=== PATIENT | female | born 1950 | race Caucasian/White ===

== ENCOUNTER 2023-02-27 11:34 | Outpatient (AMB) | payer MEDICARE, MEDICAID, SELFPAY ==
--- NOTE | 2023-02-27 11:36 | AM.OFFWIN_ITS ---
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 Patient Tobacco Use Status: Never used Tobacco Allergies celecoxib [From Celebrex] Adverse Reaction (Intermediate, Verified 02/27/23 11:38) Rash naproxen Adverse Reaction (Intermediate, Verified 02/27/23 11:38) Rash Do you need a note to return to daycare/school/sports/work: No HPI HPI Comments History of Present Illness Details 73-year-old female presents for staple removal. Patient had hip replacement at [facility] on 02/13/2023. Patient is in process of changing primary care physicians to [facility]. [facility] Social History Patient Tobacco Use Status: Never used Tobacco Review of Systems Const Details: Constitutional: No Fever, No Chills Cardiovascular: No Chest Pain, No SOB Respiratory: No Cough, No Dyspnea Gastrointestinal: No Nausea, No Vomiting, No Diarrhea, No abdominal Pain Genitourinary: No Dysuria, No Hematuria Musculoskeletal: No joint pain, No Myalgias, No Joint Swelling Skin: Well-healed, well-approximated 40 cm surgical incisions consistent with right hip replacement. No Skin lacerations, positive rash to hands and arms Neuro: No Weakness, No Numbness, No Paresthesias, No Loss of Consciousness, No Dizziness, No Headache All systems reviewed & are unremarkable except as noted in HPI and below Physical Exam Vital Signs: Last Vital Signs Temp 96.5 F L 02/27/23 11:39 Pulse 102 H 02/27/23 11:39 BP 104/62 02/27/23 11:39 Pulse Ox 98 02/27/23 11:39 Oxygen Delivery Method Room Air 02/27/23 11:39 Appearance: Alert. Oriented X3. No acute distress. Eyes: Pupils equal, round and reactive to light. ENT: Pharynx normal. Neck: Normal inspection. Neck supple. CVS: Normal heart rate and rhythm. Pulses normal. Respiratory: No respiratory distress. Breath sounds normal. Abdomen: Soft and nontender. Skin: Hives noted to hands and arms. 40 cm well-approximated well-healed surgical incision to the right hip. Twenty-two shyam removed without difficulty. No indication of infection, no bleeding. Extremities: No lower extremity edema. Gait well balanced well coordinated. Neuro: No motor deficit. No sensory deficit. Cranial nerves 2-12 intact. Assessment & Plan Assessment & Plan (1) Removal of staple: Code(s): Z48.02 - Encounter for removal of sutures (2) Allergic reaction: Code(s): T78.40XA - Allergy, unspecified, initial encounter Plan 73-year-old female presents for staple removal. States that she had a right hip replacement at [facility] on 02/13/2023. Patient does not report any concerns, states to feel well, has no indication of infection, no fevers, chills, weakness, or loss of sensation to the extremities. Patient also states that when she took oxycodone she noted that she had some rashes to her hands arms consistent with prior allergic reactions. Patient is allergic to Celebrex and naproxen, and has the same rash presentation. Patient is in the process of establishing primary care with [facility], and is on the waiting list. Physical exam is unremarkable, lung sounds are clear to auscultation, no indication of tracheal stridor or facial swelling. Will treat this suspected allergic reaction on the hands and arms with prednisone. 22 shyam removed without difficulty. Patient will continue to follow-up with this urgent care for all primary care needs as she becomes established with primary care provider at this facility. Patient verbalized understanding of discharge instructions. Verbalized understandings of signs and symptoms indicating need for emergent intervention. Medications: New prednisone 40 mg (2 x 20 mg) PO DAILY 5 days 10 tabs 0RF Patient Instructions: You were evaluated for staple removal for a right hip replacement surgical incision 02/13/2023. Your wound looks wonderful. There are no indications of infection. We removed 22 shyam from the site without difficulty. You are also evaluated for a rash on hands and arms consistent with prior allergic reactions. Please take prednisone 40 mg daily for the next 5 days. Continue to use urgent care for primary care needs as you wait for a primary care physician. Thank you for choosing this urgent care for evaluation. Please follow-up with primary care physician as needed. Return to the emergency department for any new, concerning, or worsening symptoms. Coding Level of Care Code New Pt Level 3 (88332) Diagnoses Removal of staple Z48.02 Allergic reaction T78.40XA
--- OUTSIDE RECORDS SUMMARY | 2023-02-27 11:36 | XMS_ITS | Continuity of Care Document ---
Author Name Unknown Organization [facility] Address [address] [facility] [place] [address]- Care Team Providers Care Shipping Services Sales Representative Name Role Phone Not on Staff, PCP Primary Care Physician Unavail able Encounter 08/09/22 - 08/16/22 [facility] [address], [address] [place] [address]- Attending Physician: Monica Hdz MD Admitting Physician: Monica Hdz MD Referring Physician: Monica Hdz MD Allergies, Adverse Reactions, Alerts Substance Reaction Severity Status naproxen rash Active Medications acetaminophen 325 mg oral tablet 650 mg, By Mouth, Every 6 hours, Refills 0, Maintenance, 09/15/16 7:47:04 Start Date: 09/15/16 Status: Ordered aspirin 162.5 mg oral capsule, extended release = 325 mg, By Mouth, 2 times a day, 0 Refills, Maintenance, 09/15/16 7:47:09, ER Capsule Start Date: 09/15/16 Status: Ordered bisacodyl 10 mg rectal suppository 1 supp = 10 mg, Rectally, Daily, PRN Constipation, Start POD #2, 0 Refills, Maintenance, 09/15/16 7:47:23, Suppository Start Date: 09/15/16 Status: Ordered Calcium / Vitamin D Combo Tablet See Instructions, 0, 0, 10/20/08 10:34:04, By Mouth 3 times a day, Print ANURAG Number, Constant Indicator Start Date: 10/20/08 Status: Ordered CeleBREX 200 mg oral capsule 1 capsule = 200 mg, By Mouth, Daily, # 30 capsule, 0 Refills, Maintenance, 09/12/16 2:25:02, Capsule Start Date: 09/12/16 Status: Ordered clonazePAM 1 mg oral tablet 1 tablet = 1 mg, By Mouth, Daily at bedtime, for 90 days, # 90 tablet, 2 Refills, Hard Stop 02/02/23 9:21:00 EDT, 05/08/22 9:21:00 EDT, [facility] Start Date: 05/08/22 Stop Date: 02/02/23 Status: Ordered clonazePAM 1 mg oral tablet 1 tablet = 1 mg, By Mouth, Daily at bedtime, for 30 days, # 30 tablet, 2 Refills, Hard Stop 09/24/22 9:53:00 EST, 06/26/22 9:53:00 EST, [facility]/pharmacy #[id number] Start Date: 06/26/22 Stop Date: 09/24/22 Status: Ordered cyclobenzaprine 10 mg oral tablet 10 mg, 1, tablet, By Mouth, 3 times a day, PRN, # 30 tablet, Refills 0, Maintenance, for spasm, 09/05/16 13:08:10 Start Date: 09/05/16 Status: Ordered docusate sodium 100 mg oral capsule 100 mg, 1, capsule, By Mouth, 2 times a day, Refills 0, Maintenance, 09/15/16 7:47:26 Start Date: 09/15/16 Status: Ordered Ferrous Sulfate Tablet See Instructions, 0, 0, 10/20/08 10:36:07, Print ANURAG Number, Constant Indicator Start Date: 10/20/08 Status: Ordered HYDROmorphone 2 mg oral tablet = 2 mg, By Mouth, Every 4 hours, PRN Pain , Mild, 0 Refills, Maintenance, 09/15/16 7:47:27, Tablet Start Date: 09/15/16 Status: Ordered Maalox Plus Liquid 30 mL, By Mouth, Every 4 hours, PRN Nausea & Vomiting, 0 Refills, Maintenance, 09/15/16 7:47:06, Suspension Start Date: 09/15/16 Status: Ordered Milk of Magnesia Liquid 30 mL, By Mouth, Daily, PRN Constipation, 0 Refills, Maintenance, 09/15/16 7:47:34, Suspension Start Date: 09/15/16 Status: Ordered MiraLax Powder 1 pack/packet = 17 Gm, By Mouth, Daily, 0 Refills, Maintenance, 09/15/16 7:47:38, Powder Start Date: 09/15/16 Status: Ordered Mirapex 0.5, mg, By Mouth, Daily, 0, 0, 10/20/08 10:35:28, Print ANURAG Number, [id number], Constant Indicator Start Date: 10/20/08 Status: Ordered omeprazole 20mg omeprazole 20mg, Refills 0, Maintenance, 09/05/16 13:08:17, Compound Start Date: 09/05/16 Status: Ordered pregabalin 300 mg oral capsule 1 capsule = 300 mg, By Mouth, 2 times a day, # 180 capsule, 0 Refills, Maintenance, 09/12/16 2:25:34, Capsule Start Date: 09/12/16 Status: Ordered senna 187 mg oral tablet 1 tablet = 8.6 mg, By Mouth, Daily at bedtime, 0 Refills, Maintenance, 09/15/16 7:47:40, Tablet Start Date: 09/15/16 Status: Ordered sertraline 100 mg oral tablet See Instructions, 1 tablet By Mouth Daily in the morning and half tablet at bedtime, # 135 tablet, 2 Refills, Maintenance, 08/14/22 9:36:00 EST, [facility]/pharmacy #[id number], 90 day supply Start Date: 08/14/22 Status: Ordered traZODone 50 mg oral tablet 50 mg, 1, tablet, By Mouth, Daily at bedtime, TAKE 1 TO 2 TABLETS AT BEDTIME NEEDED FOR INSOMNIA., # 90 tablet, Refills 3, Tot. Refills 3, Maintenance, 12/22/20 10:05:00 EDT, Route to Pharmacy Electronically, [id number] Start Date: 12/22/20 Status: Ordered Ventolin 90 mcg Inhaler 2, puffs, Every 4 hours, PRN, Refills 0, Maintenance, 09/12/16 2:25:51, Inhaler Start Date: 09/12/16 Status: Ordered Problem List Condition Confirmation Course Effective Dates Status Health St atus Informant Major depression, recurrent Confirmed Active Results Radiology Reports * Exam Date Time Procedure Performing Provider Status 08/09/22 4:26 PM Dexa Bone Density (Axial) Asiya Arauz; Auth (Verified) Notes: (Dexa Bone Density (Axial)) Reason For Exam: Z78.0 MENOPAUSE RESULT: DEXA BONE DENSITY (AXIAL) Bone Density Report Name: THELMA JOY Age: 72 Sex: Female Ethnicity: White Date of : 1950 Indication: POSTMENOPAUSAL. Referring Provider: MONICA HDZ Study: Bone densitometry was performed. Exam Date: August 09, 2022 Accession number: [id number] Bone Density: Region BMD T-score Z-score Classification AP Spine (L1, L2) 1.071 0.8 2.8 Normal Femoral Neck (Left) 0.669 -1.6 0.2 Osteopenia Total Hip (Left) 0.780 -1.3 0.2 Osteopenia Total Forearm (Left) 0.463 -2.1 -0.1 1/3 Forearm (Left) 0.595 -1.6 0.5 Osteopenia UD Forearm (Left) 0.341 -1.8 -0.2 World Health Organization criteria for BMD impression classify patients as: Normal (T-score at or above -1.0), Osteopenia (T-score between -1.0 and -2.5), or Osteoporosis (T-score at or below -2.5). 10-year Fracture Risk(1): Major Osteoporotic Fracture 10% Hip Fracture 1.6% Reported Risk Factors: [place] (), Neck BMD=0.669, BMI=26.5 (1) FRAX(R) Version 3.00. Fracture probability calculated for an untreated patient. Fracture probability may be lower if the patient has received treatment. Previous Exams: Region Exam Age BMD T-score BMD Change BMD Change Date g/cm2 vs Baseline vs Previous AP Spine(L1, L2) 08/09/2022 72 1.071 0.8 14.8%* 0.5% 07/15/2020 70 1.065 0.8 14.2%* 8.2%* 06/20/2012 62 0.984 0.0 5.5%* 5.5%* 06/14/2007 57 0.933 -0.4 Total Hip(Left) 08/09/2022 72 0.780 -1.3 -14.7%* -4.0%* 07/15/2020 70 0.813 -1.1 -11.1%* -7.1%* 06/20/2012 62 0.875 -0.6 -4.3%* -4.3%* 06/14/2007 57 0.914 -0.2 Femoral Neck(Left) 08/09/2022 72 0.669 -1.6 -4.8%* 3.6% 07/15/2020 70 0.645 -1.8 -8.1%* -5.0%* 06/20/2012 62 0.679 -1.5 -3.4% -3.4% 06/14/2007 57 0.702 -1.3 1/3 Forearm(Left) 08/09/2022 72 0.595 -1.6 -12.8%* -1.5% 07/15/2020 70 0.605 -1.5 -11.5%* -11.5%* 06/20/2012 62 0.683 -0.2 *Denotes significance at 95% confidence level, LSC for AP Spine = 0.022 g/cm2, LSC for Total Hip = 0.027 g/cm2 Clinical Information Provided by Patient: Has used the following medications: Calcium Has the following medical conditions: Cancer, NSPINE SURGERY Patient maximum height was 64.5 Menopause Age: 54 Onset of menses at age 16 Number of children 2 Impression: The patient has osteopenia as determined by WHO criteria. Reported by: Rudi Reyes M.D. on 08/15/2022 3:29:00 PM. Dictated By: Rudi Reyes MD Dictated Date/Time: 08/15/22 3:30 pm Reviewed By: Rudi Reyes MD Signed By: Rudi Reyes MD Signed Date/Time: 08/15/22 3:30 pm Transcribed By: VALERIANO Transcribed Date/Time: 08/15/22 3:30 pm DXA Skeletal system.axial Views for bone density * BHSPowerscribe , CIS S: TRANSCRIBE CODIESPowerscpelon , CIS S: TRANSCRIBE, VERIFY Rudi Reyes MD: VERIFY, VERIFY Rudi Reyes MD: VERIFY Event Display: Result: Authored Date: [id number] Bone Density Report Name: THELMA JOY Age: 72 Sex: Female Ethnicity: White Date of : 1950 Indication: POSTMENOPAUSAL. Referring Provider: MONICA HDZ Study: Bone densitometry was performed. Exam Date: August 09, 2022 Accession number: [id number] Bone Density: Region BMD T-score Z-score Classification AP Spine (L1, L2) 1.071 0.8 2.8 Normal Femoral Neck (Left) 0.669 -1.6 0.2 Osteopenia Total Hip (Left) 0.780 -1.3 0.2 Osteopenia Total Forearm (Left) 0.463 -2.1 -0.1 1/3 Forearm (Left) 0.595 -1.6 0.5 Osteopenia UD Forearm (Left) 0.341 -1.8 -0.2 World Health Organization criteria for BMD impression classify patients as: Normal (T-score at or above -1.0), Osteopenia (T-score between -1.0 and -2.5), or Osteoporosis (T-score at or below -2.5). 10-year Fracture Risk(1): Major Osteoporotic Fracture 10% Hip Fracture 1.6% Reported Risk Factors: [place] (), Neck BMD=0.669, BMI=26.5 (1) FRAX(R) Version 3.00. Fracture probability calculated for an untreated patient. Fracture probability may be lower if the patient has received treatment. Previous Exams: Region Exam Age BMD T-score BMD Change BMD Change Date g/cm2 vs Baseline vs Previous AP Spine(L1, L2) 08/09/2022 72 1.071 0.8 14.8%* 0.5% 07/15/2020 70 1.065 0.8 14.2%* 8.2%* 06/20/2012 62 0.984 0.0 5.5%* 5.5%* 06/14/2007 57 0.933 -0.4 Total Hip(Left) 08/09/2022 72 0.780 -1.3 -14.7%* -4.0%* 07/15/2020 70 0.813 -1.1 -11.1%* -7.1%* 06/20/2012 62 0.875 -0.6 -4.3%* -4.3%* 06/14/2007 57 0.914 -0.2 Femoral Neck(Left) 08/09/2022 72 0.669 -1.6 -4.8%* 3.6% 07/15/2020 70 0.645 -1.8 -8.1%* -5.0%* 06/20/2012 62 0.679 -1.5 -3.4% -3.4% 06/14/2007 57 0.702 -1.3 08/08 Forearm(Left) 08/09/2022 72 0.595 -1.6 -12.8%* -1.5% 07/15/2020 70 0.605 -1.5 -11.5%* -11.5%* 06/20/2012 62 0.683 -0.2 *Denotes significance at 95% confidence level, LSC for AP Spine = 0.022 g/cm2, LSC for Total Hip = 0.027 g/cm2 Clinical Information Provided by Patient: Has used the following medications: Calcium Has the following medical conditions: Cancer, NSPINE SURGERY Patient maximum height was 64.5 Menopause Age: 54 Onset of menses at age 16 Number of children 2 Impression: The patient has osteopenia as determined by WHO criteria. Reported by: Rudi Reyes M.D. on 08/15/2022 3:29:00 PM. Dictated By: Rudi Reyes MD Dictated Date/Time: 08/15/22 3:30 pm Reviewed By: Rudi Reyes MD Signed By: Rudi Reyes MD Signed Date/Time: 08/15/22 3:30 pm Transcribed By: VALERIANO Transcribed Date/Time: 08/15/22 3:30 pm Patient Care team information Care Team Personnel Name: Kenny NAIDU, Richelle Go Position: [facility] Associate Professional Member Role: Primary Care Nurse Address: Address: [address] [place] [id number]- Name: Maria Isabel RNRosa Position: [facility] RN Member Role: Primary Care Nurse Name: Addie White RN Position: [facility] SN RN Member Role: Primary Care Nurse Name: Akash Rees RN Position: [facility] RN Member Role: Primary Care Nurse Name: Antony Roche Position: [facility] Cardio/Pulm Mgr ([facility] [place]) Member Role: Primary Care Nurse Name: Yana Beltran Position: [facility] RN Member Role: Primary Care Nurse Name: Belem Mcnamara Position: [facility] RN Member Role: Primary Care Nurse Name: Héctor Colin RN Position: [facility] RN Member Role: Primary Care Nurse Name: Not on Staff, PCP Position: [facility] Physician (General Medicine) Member Role: PCP Name: Sue Lainez NP Position: [facility] Associate Professional Member Role: Primary Care Nurse Address: Address: [address] [place] [address] [address] [facility] [place] [address]- Care Team Related Persons Name: KELLY HANNAH Address: home PERSONAL ATTOURNEY Name: FRANCHESKA HANNAH Address: [place], [place] [address] Name: MAX JOY Address: [address] [place] [address]
--- OUTSIDE RECORDS SUMMARY | 2023-02-27 11:36 | XMS_ITS | Continuity of Care Document ---
Author Name Unknown Organization [facility] [address] [place] [address]- Care Team Providers Care Program Control Analyst Name Role Phone Olga Hdz MD Primary Care Physician [phone] Encounter 07/15/20 - 07/22/20 [facility] [address], [address] [place] [address]- Attending Physician: Olga Hdz MD Admitting Physician: Olga Hdz MD Referring Physician: Olga Hdz MD Allergies, Adverse Reactions, Alerts Substance [...] 2:25:02, Capsule Start Date: 09/12/16 Status: Ordered cyclobenzaprine 10 mg oral tablet [...] 0, 0, 10/20/08 10:35:28, Print ANURAG Number, [id number], Constant Indicator Start Date: 10/20/08 Status: Ordered [...] Status: Ordered sertraline 100 mg oral tablet 1 tablet = 100 mg, By Mouth, Daily, SCHEDULE APPOINTMENT, # 3 tablet, 3 Refills, Maintenance, 02/19/18 11:27:00 EDT Start Date: 02/19/18 Stop Date: 03/03/18 Status: Ordered Ventolin 90 mcg Inhaler 2, puffs, Every 4 hours, PRN, Refills 0, Maintenance, 09/12/16 2:25:51, Inhaler Start Date: 09/12/16 Status: Ordered Problem List Condition Effective Dates Status Health Status Inform ant Major depression, recurrent(Confirmed) Active Results Radiology Reports * Exam Date Time Procedure Performing Provider Status 07/15/20 2:43 PM Dexa Bone Density (Axial) rGayson Sales; Kira (Verified) Notes: (Dexa Bone Density (Axial)) Reason For Exam: M85.80 OSTEOPENIA RESULT: DEXA BONE DENSITY (AXIAL) Bone Density Report Name: THELMA JOY Age: 70 Sex: Female Ethnicity: White Date of : 1950 Indication: POSTMENOPAUSAL. Referring Provider: OLGA HDZ Study: Bone densitometry was performed. Exam Date: July 15, 2020 Accession number: [id number] Bone Density: Region BMD T-score Z-score Classification AP Spine (L1, L2) 1.065 0.8 2.7 Normal Femoral Neck (Left) 0.645 -1.8 -0.1 Osteopenia Total Hip (Left) 0.813 -1.1 0.4 Osteopenia Total Forearm (Left) 0.491 -1.6 0.2 1/3 Forearm (Left) 0.605 -1.5 0.4 Osteopenia UD Forearm (Left) 0.367 -1.3 0.1 World Health Organization criteria for BMD impression classify patients as: Normal (T-score at or above -1.0), Osteopenia (T-score between -1.0 and -2.5), or Osteoporosis (T-score at or below -2.5). 10-year Fracture Risk(1): Major Osteoporotic Fracture 11% Hip Fracture 1.7% Reported Risk Factors: [place] (), Neck BMD=0.645, BMI=26.7 (1) FRAX(R) Version 3.00. Fracture probability calculated for an untreated patient. Fracture probability may be lower if the patient has received treatment. Previous Exams: Region Exam Age BMD T-score BMD Change BMD Change Date g/cm2 vs Baseline vs Previous AP Spine(L1, L2) 07/15/2020 70 1.065 0.8 14.2%* 8.2%* 06/20/2012 62 0.984 0.0 5.5%* 5.5%* 06/14/2007 57 0.933 -0.4 Total Hip(Left) 07/15/2020 70 0.813 -1.1 -11.1%* -7.1%* 06/20/2012 62 0.875 -0.6 -4.3%* -4.3%* 06/14/2007 57 0.914 -0.2 Femoral Neck(Left) 07/15/2020 70 0.645 -1.8 -8.1%* -5.0%* 06/20/2012 62 0.679 -1.5 -3.4% -3.4% 06/14/2007 57 0.702 -1.3 1/3 Forearm(Left) 07/15/2020 70 0.605 -1.5 -11.5%* -11.5%* 06/20/2012 62 0.683 -0.2 *Denotes significance at 95% confidence level, LSC for AP Spine = 0.022 g/cm2, LSC for Total Hip = 0.027 g/cm2 Clinical Information Provided by Patient: Has used the following medications: Calcium Patient maximum height was 64.5 Menopause Age: 54 Onset of menses at age 16 Number of children 2 Impression: The patient has osteopenia as determined by WHO criteria. Reported by: Rudi Reyes M.D. on 07/16/2020 12:32:00 PM. Dictated By: Rudi Reyes MD Dictated Date/Time: 07/16/20 12:33 p Reviewed By: Rudi Reyes MD Signed By: Rudi Reyes MD Signed Date/Time: 07/16/20 12:33 pm Transcribed By: VALERIANO Transcribed Date/Time: 07/16/20 12:33 pm
[2023-02-27 11:39] VITALS: BP 104/62; PULSE 102; TEMP 35.8; O2SAT 98
== END 2023-02-27 13:39 | disposition home or self-care (01) ==
PROVIDERS: Visit Provider Nurse Practitioner Family
DX: Z48.02 Encounter for removal of sutures (principal); T78.40XA Allergy, unspecified, initial encounter
CPT/HCPCS: 99203

== ENCOUNTER 2025-01-07 09:35 | Outpatient (REF) | payer MEDICARE, MEDICAID, SELFPAY ==
[2025-01-07 11:43] LABS: Anion Gap 12 (12-20); Blood Urea Nitrogen 13 mg/dL (9-16); Calcium 9.4 mg/dL (8.4-10.2); Carbon Dioxide 30 mmol/L (22-29); Chloride 107 mmol/L (96-108); Estimated Glomerular Filt Rate > 60; Glucose Fasting 82 mg/dL (60-99); Potassium 3.9 mmol/L (3.3-5.1); Sodium 145 mmol/L (135-145)
[2025-01-07 12:25] LABS: Folate 13.6 ng/mL (> or = 4.0); Vitamin B12 569 pg/mL (200-900)
[2025-01-09 02:19] LABS: Lyme Abs Screen <0.90 index
[2025-01-12 10:12] LABS: IgA 151 mg/dL (70-320); IgG 1094 mg/dL (600-1540); IgM 99 mg/dL (50-300)
== END 2025-01-07 09:36 | disposition home or self-care (01) ==
LOC: HO.LAB 09:35
PROVIDERS: PCP Family Medicine; Visit Provider Psychiatry & Neurology Neurology
DX: G62.9 Polyneuropathy, unspecified (principal)
CPT/HCPCS: 36415; 80048; 82607; 82746; 82784; 86334; 86617; 86618

== ENCOUNTER 2025-02-04 14:41 | Outpatient (REF) | payer MEDICARE, MEDICAID, SELFPAY ==
--- OUTSIDE RECORDS SUMMARY | 2020-03-29 09:00 | XMS_ITS | Continuity of Care Document ---
Author Organization [facility] Address [address] [address] Phone Care Team Providers Care Jewelry Bench Molder Name Role Phone Lusi Manuel Ramos Unavailable Unavailable Allergies, Adverse Reactions, Alerts Substance Reaction Status Criticality naproxen Active No Information celecoxib Active No Information Medications Medication Instructions Dosage Effective Dates (start - stop) Status Comments LYRICA (unknown strength) Not Available - Active SERTRALINE HCL (unknown strength) Not Available - Active CLONAZEPAM (unknown strength) Not Available - Active SERTRALINE HCL (unknown strength) Not Available - Active FISH OIL (unknown strength) Not Available - Active CENTRUM SILVER (unknown strength) Not Available - Active Procedures Procedure Date Inj Scleros Solut; Mx Veins 1 0 Inj Scleros Solut; Mx Veins 1 0 Office/Outpt E&M Established 15 Mins Feb Duplex Scan-extrem Veins; Comp Duplex Scan-extrem Veins; Uni/ 20 Ultrason Guidan Needle Bx-rad 0 Inj Scleros Solut; Mx Veins 1 0 Duplex Scan-extrem Veins; Comp 20 Ultrason Guidan Needle Bx-rad 0 Inj Scleros Solut; Mx Veins 1 0 Duplex Scan-extrem Veins; Comp 20 Varithena, Single Truncal Vein 20 Duplex Scan-extrem Veins; Uni/ Office/Outpt E&M Established 15 Mins December Varithena, Single Truncal Vein Office/Oupt E&M New Pt 45 Mins Duplex Scan-extrem Veins; Comp Advance Directives Directive Yes / No Effective Date File Name No Information Encounters Encounter Description Practice Location Reason(s) For Visit Diagnoses Date Provider Providers Copied on Encounter [facility], [address] [place] [address], [id number], tel:[phone] [place] Varicose veins of left lower extremities w ot complications 0 Rachel Luis Manuel. [address], [address], [place], [place], [facility], . tel: [phone] Referring Provider: Yvrose Moe APRN, [address] [place], [place], [facility]. tel:[phone] [facility], [address] [place] [address], [id number], tel:[phone] [place] Varicose veins of left lower extremities w oth complications 0 Rachel Issa. [address], [address], [place], [address], . tel: [phone] Referring Provider: Yvrose Moe APRN, [address] [place], [place], [facility]. tel:[phone] Office/Outpt E&M Established 15 Mins [facility], [address] [place] [address], [id number], tel:[phone] [place] - [place] Venous insufficiency (chronic) (peripheral)Bod y mass index (BMI) 27.0-27.9, adultPain in right lower legPain in left lower leg 0 Racheltiffanie Issa. [address], [address], [place], [address], [place]. tel: [phone] Referring Provider: Yvrose Moe APRN, [address], [place], [address]. tel:[phone] [facility], [address] [facility] [address], [place], [place], [id number], [place] tel:[phone] VR - [place] - [place] Pain in right legChronic venous htn w oth comp of bilateral low extrm Puma-0 1-202 0 Rachel Luis Manuel. [address], [address], [place], [address], [place]. tel: [phone] Referring Provider: Yvrose Moe APRN, [address], [place], [address]. tel:[phone] [facility], [address] [place] [address], [place], [place], [id number], [place] tel:[phone] [place] - [place] Encntr for f/u exam aft trtmt for cond oth than malig neoplmVaricose veins of left lower extremities with pain Chema-0 3-202 0 Rachel Luis Manuel. [address], [address], [place], [address], [place]. tel: [phone] Referring Provider: Yvrose Moe APRN, [address], [place], [address]. tel:[phone] [facility], [address] [place] [address], [place], [place], [id number], [place] tel:[phone] [place] Varicose veins of left lower extremities w oth complications Chema-0 -202 0 Rachel Luis Manuel. [address], [address], [place], [address], [place]. tel: [phone] Referring Provider: Yvrose Moe APRN, [address], [place], [address]. tel:[phone] [facility], [address], [place], [place], [id number], [place] tel:[phone] [place] - [place] - [place] Encntr for f/u exam aft trtmt for cond oth than malig neoplmChronic venous htn w oth comp of bilateral low extrm Chema-0 0 Rachel Luis Manuel. [address], [address], [place], [address], [place]. tel: [phone] Referring Provider: Yvrose Moe APRN, [address], [place], [address]. tel:[phone] [facility], [address] [address], [place], [place], [id number], [place] tel:[phone] [place] - [place] - [place] Varicose veins of right low extrm w oth complications 0 Rachel Luis Manuel. [address], [address], [place], [address], [place]. tel: [phone] Referring Provider: Yvrose Moe APRN, [address], [place], [address]. tel:[phone] [facility], [address], [place], [place], [id number], [place] tel:[phone] [place] - [place] - [place] Encntr for f/u exam aft trtmt for cond oth than malig neoplmChronic venous htn w oth comp of bilateral low extrm 0 Rachel Luis Manuel. [address], [address], [place], [address], [place]. tel: [phone] Referring Provider: Yvrose Moe APRN, [address], [place], [address]. tel:[phone] [facility], [address], [place], [place], [id number], [place] tel:[phone] [place] - [place] - [place] Varicose veins of left lower extremities w oth complications 0 Rachel Luis Manuel. [address], [address], [place], [address], [place]. tel: [phone] Referring Provider: Yvrose Moe APRN, [address], [place], [address]. tel:[phone] [facility], [address] [place] [address], [id number], [place] tel:[phone] [place] - [place] Encntr for f/u exam aft trtmt for cond oth than malig neoplmChronic venous hypertension w oth comp of r low extrem 0 Rachel Luis Manuel. [address], [address], [place], [address], [place]. tel: [phone] Referring Provider: Yvrose Moe APRN, [address], [place], [address]. tel:[phone] Office/Outpt E&M Established 15 Mins [facility], [address] [place] [address], [id number], [place] tel:[phone] [place] - [place] Chronic venous htn w oth comp of bilateral low extrm December- 0 Rachel Luis Manuel. [address], [address], [place], [address], [place]. tel: [phone] Referring Provider: Yvrose Moe APRN, [address], [place], [address]. tel:[phone] [facility], [address] [place] [address], [id number], [place] tel:[phone] [place] - [place] Varicose veins of right low extrm w oth complications 0 Rachel Luis Manuel. [address], [address], [place], [address], . tel:[phone] Referring Provider: Yvrose Moe APRN, [address], [place], [address]. tel:[phone] Office/Oupt E&M New Pt 45 Mins [facility], [address] [place] [address], [id number], tel:[phone] [place] Body mass index (BMI) 27.0-27.9, adultVenous insufficiency (chronic) (peripheral)Tu icose veins of bi low extrem w oth complications Oct-2 3- 0 Rachel Luis Manuel. [address], [address], [place], [facility], [place]. tel:[phone] Referring Provider: Yvrose Moe APRN, [address] [place], [place], [facility]. tel:[phone] [facility], [address] [place] [address], [id number], [place] tel:[phone] [facility] Chronic venous htn w oth comp of bilateral low extrm Oct-2 - 0 Rachel Luis Manuel. [address], [address], [place], [address], . tel:[phone] Referring Provider: Yvrose Moe APRN, [address] [place], [place], [facility]. tel:[phone] Family History Family Member Type Diagnosis Age At Onset Mother Problem (finding) Blood clots, legs Mother Problem (finding) Hypertension Mother Problem (finding) Edema Mother Problem (finding) Varicose Veins Mother Problem (finding) Stroke Mother Problem (finding) Bleeding disorder Mother Problem (finding) Obesity Mother Problem (finding) Diabetes mellitus Payers Payer name Insurance type Covered democrat ID Authoriza tion(s) [place] [id number] Social History Type Description Quantity Date Captured Comments Sex Female Smoking Status No Information Chief Complaint And Reason For Visit No Information Reason For Referral Reason For Referral No Information Plan Of Treatment Date Type Action Status Goal Diet education completed Goal Diet education completed Referral Ordered: Duplex Scan-extrem Veins; Comp Bilateral leg ordered History Of Present Illness Encounter Date Complaint History Of Prese nt Illness Pain Cramping Restless Legs Pain Cramping Functional Status Date Functional Assessmen t No Information Instructions Date Instruction Additional Infor mation Patient education booklet given Related to Venous Insufficiency (Chronic / Peripheral) Diet education Related to Body mass index (BMI) 27.0-27.9, adult Giving Encouragement to Exercise Related to Body mass index (BMI) 27.0-27.9, adult Patient education booklet given Related to Chrn Vns Hyprtnsn w/Compl (Pain Edema Swelling); BILAT Pre and post instruc tions reviewed and provided Related to Venous Insufficiency (Chronic / Peripheral) Patient education booklet given Related to Venous Insufficiency (Chronic / Peripheral) Diet education Related to Body mass index (BMI) 27.0-27.9, adult Giving Encouragement to Exercise Related to Body mass index (BMI) 27.0-27.9, adult Assessments Type Assessment Date No Information Patient Care Teams Name Effective Dates (start - stop) Status Members No Information
--- NOTE | 2025-02-04 | EMG_ITS ---
Please see the attached neurophysiology report MTDD
--- NOTE | 2025-02-04 | EMG_ITS ---
Please refer to the attached detailed neurophysiology report MTDD
--- OUTSIDE RECORDS SUMMARY | 2025-02-04 15:08 | XMS_ITS | Data Portability ---
Author Organization [facility] [address] Address [address] [place] [address] Assessment No assessment recorded. Plan of Treatment Reminders Order Date Submit Date Provider Last Modified By Organization Details Last Modified Time Details Appointments None record ed. Lab None record ed. Referral None record ed. Procedures None record ed. Surgeries None record ed. Imaging None record ed. Medication Orders None record ed. Patient TargetsNo targets recorded. Patient InstructionsNo instructions recorded. Reason for Referral None Reported. Medical Equipment None Reported. Vitals None Recorded Social History None recorded. Functional Status None recorded. Mental Status None recorded. Family History Nothing Reported. Medical History No medical history recorded. Gynecological HistoryNo gynecological history recorded. Obstetrics History GPAL:G 0 P 0 0 0 0 Past Encounters Encounter ID Performer Location Encounter Start Date Encounter Closed Date Diagnosis/Indication Diagnosis SNOMED-CT Code Diagnosis ICD10 Code Diagnosis Note [id number] [facility] [address] [place] [address] 05/09/2019 12:43:19 05/09/2019 13:33:53 Health Concerns Section Related Observation LastModified by Organization Detai ls LastModified Time None Recorded Concern Status LastModified by Organization Details LastModified Time None Recorded Advance Directives Directive None Recorded Payers Insurance Date Sequence Insurance Name Policy Number Policy Vazquez Covered Member ID Vazquez Member ID Guarantor Name 02/27/2023 1 [place]: [employer] Ana Maria Henry [id number] Ana Maria Henry 02/27/2023 2 [place] Ana Maria Henry [id number] Ana Maria Henry OBGyn Episode No OBEpisode recorded.
--- OUTSIDE RECORDS SUMMARY | 2025-02-04 15:09 | XMS_ITS | Clinical Summary ---
Author Organization [address] [facility] Address [address] [place] [address] Phone Care Team Providers Care Antisqueak Worker Name Role Phone Monica Hdz MD Primary Care Provider [phone] Surgical History Surgery Date Site/Laterality Comments HAND SURGERY PROCEDURE: HISTORICAL HAND SURGERY MASTECTOMY PROCEDURE: HISTORICAL MASTECTOMY; COMMENT: bilateral, breast reconstruction OTHER SURGICAL HISTORY PROCEDURE: ---- OTHER ----; COMMENT: l4-l5 decompression APPENDECTOMY PROCEDURE: HISTORICAL APPENDECTOMY Medical History Medical History Date Comments Diverticulitis DX:Diverticuliti s Breast cancer ([facility] V24, [facility] V28) DX:Breast cancer ([facility]) Family History Medical History Relation Name Comments Diabetes Mother Stroke Mother Relation Name Status Comments Father (Age 82) sbo Mother (Age 90) dm, cva Sister 1 Alive skin cancer Sister 2 Alive Sister 3 Alive Sister 4 Alive Social History Tobacco Use Types Packs/Day Years Used Date Smoking Tobacco: Former Cigarettes Alcohol Use Standard Drinks/Week Comments Yes 0 (1 standard drink = 0.6 oz pur e alcohol) Comments Unknown Sex and Gender Information Value Date Recorded Sex Assigned at Not on file Legal Sex Female 3:40 PM EST Gender Identity Not on file Sexual Orientation Not on file Obstetrics History Plan of Treatment Upcoming Encounters Date Type Department Care Team (Late st Contact Info) Description 03/12/2025 10:00 AM EDT Telemedicine [facility] [address] [place] [address] Karley Young MD [address] [place] [id number] Health Maintenance Due Date Last Done Comments COVID-19 Vaccine (#1) 02/14/1955 DTaP,Tdap,and Td Vaccines (1 - Tdap) 02/14/1971 Pneumococcal Vaccine: 50+ Ye ars (1 of 2 - PCV) 02/14/1971 Zoster Vaccines (1 of 2) 02/14/1971 Colorectal Cancer Screening: Colonoscopy 07/05/2022 Depression Screening 07/05/2022 Falls Risk Assessment 07/05/2022 Hepatitis C Screening 07/05/2022 Medicare Annual Wellness Visit 07/05/2022 Osteoporosis Screening (Bone Density Screening) 07/05/2022 Social Influencers of Health Screening 07/05/2022 Influenza Vaccine (Season Ended) 2025 05/07/20 08 RSV Immunization Adult Patie nts (1 - 1-dose 75+ series) 02/14/2027 HIB Vaccines Aged Out No longer eligi ble based on patient's age to complete this topic HPV Vaccines Aged Out No longer eligi ble based on patient's age to complete this topic Hepatitis A Vaccines Aged Out No long er eligible based on patient's age to complete this topic Hepatitis B Vaccines Aged Out No long er eligible based on patient's age to complete this topic IPV Vaccines Aged Out No longer eligi ble based on patient's age to complete this topic MMR Vaccines Aged Out No longer eligi ble based on patient's age to complete this topic Meningococcal ACWY Vaccine Aged Out N o longer eligible based on patient's age to complete this topic Meningococcal B Vaccine Aged Out No l onger eligible based on patient's age to complete this topic RSV Immunization Patients Un vandana 20 months Aged Out No longer eligible b ased on patient's age to complete this topic Varicella Vaccines Aged Out No longer eligible based on patient's age to complete this topic Insurance [place] - [place] MEDICARE Care Teams Antisqueak Worker Relationship Specialty Start Date End Date Monica Hdz MD [address] [place] [address] PCP - General Internal Medicine 12/30/24
--- OUTSIDE RECORDS SUMMARY | 2025-02-04 15:09 | XMS_ITS | Patient Health Record ---
Author Organization [employer] [facility] Address [address] [place] [address] Support Name Relationship Address Phone THELMA JOY Guarantor Unknown [phone] Reason For Referral No Information Medications Medication SIG (Take, Route, Fr equency, Duration) Notes Start Date End Date Status Lunesta 2MG 1 ORAL at bedtime; Duration: -3 [facility] 2010 Active Lyrica 150MG 1 ORAL twice daily; Duration: -3 [facility] 07/10/2011 Active Estring 2MG VIKY PV Vaginal EVERY 3 MONTHS; Duration: -3 [facility] 10/17/2011 Active Terazol 7 0.4% 1APP PV VAGINAL at b edtime; Duration: 7 [facility] 10/24/2011 Active CeleBREX 200MG 1 ORAL daily; Duration: -3 [facility] 07/10/20 11 Active Metaxalone 800MG 1 ORAL daily; Duration: -3 [facility] 2010 Active oxyCODONE HCl 5MG 1 ORAL every four ho urs; Duration: 10 [facility] 10/17/2011 Active Sertraline HCl 50MG 1 ORAL daily; Duration: -3 [facility]- 12/2010 Active Problems Problem Type SNOMED Code ICD Code Onset Dates Problem Status W/U Status Risk Notes Problem Non-infective leukorrhea (085012140) Leukorrhea, not specified as infective (623.5) Active confirmed Diag Problem Menopausal symptom (91400140) Symptomatic menopausal or female climacteric states (627.2) Active confirmed Major Problem Osteoarthritis (921124461) Osteoarthrosis, unspecified whether generalized or localized, unspecified site (715.90) Active confirmed Major Problem Gynecological examination normal (390796158647599) Routine gynecological examination (V72.31) Active confirmed Major Problem Screening for malignant neoplasm of colon (546501922) Special screening for malignant neoplasms, colon (V76.51) Active confirmed Major Plan Of Treatment No Information Insurance Providers Payer Name Payer Address Payer Phone Subscriber Number Group Number Insured Name Patient Relationship to Insured Coverage Start Date Coverage End Date [employer] [place] [address] [place] [id number] THELMA JOY Self - patient is the insured
--- OUTSIDE RECORDS SUMMARY | 2025-02-04 15:09 | XMS_ITS | Patient Health Record ---
Author Organization [facility] Address [address] [place] [address] Care Team Providers Care Credit Charge Authorizer Name Role Phone Evan Okeefe MD Primary Care Provider Unavailab Charo Feng Unavailable [phone] Allergies Allergen (clinical drug ingredient) Drug/Non Drug Allergy documented on EMR Reaction Allergy Type Onset Date Status naproxen Naprosyn rash Drug Allergy Active Reason For Referral No Information Medications Medication SIG (Take, Route, Fr equency, Duration) Notes Start Date End Date Status Flexeril Active CeleBREX Active Lyrica Active Sertraline HCl Activ e oxyCODONE HCl Active clonazePAM Active Zolpidem Tartrate Ac tive Problems Problem Type SNOMED Code ICD Code Onset Dates Problem Status W/U Status Risk Notes Problem Arthralgia (719.40) Active confirmed Plan Of Treatment Pending Test Test Name Order Date , J0702- INJECT or DRAIN, JOINT/BUR SA 06/09/2011 X ray : Ankle, right 3V 06/09/2011 Insurance Providers Payer Name Payer Address Payer Phone Subscriber Number Group Number Insured Name Patient Relationship to Insured Coverage Start Date Coverage End Date [facility] [address] [place] [address] [id number] Ana Maria Henry Self - patient is the insured Medical (General) History Medical History History ICD Code transfusions chicken pox sciatica reflux osteoporosis neuropathy headaches/migraines diverticulitis cancer back, hip, knee pain Arthritis Surgical History Surgery Date(Month/Year) appendectomy 1969 finger surgery 1994 laminectomy 2010 bilateral mastectomy 2009
== END 2025-02-04 14:42 | disposition home or self-care (01) ==
LOC: HO.NEURO 14:41
PROVIDERS: PCP Family Medicine; Visit Provider Psychiatry & Neurology Neurology
DX: G62.9 Polyneuropathy, unspecified (principal); M79.605 Pain in left leg; M79.604 Pain in right leg
CPT/HCPCS: 95860; 95886; 95907; 95911

== ENCOUNTER → 2025-02-04 14:53 | Outpatient (BNV) | payer MEDICARE, MEDICAID, SELFPAY | PROVIDERS: PCP Family Medicine; Visit Provider Psychiatry & Neurology Neurology | DX: G62.89 Other specified polyneuropathies (principal) | CPT/HCPCS: 95886; 95911 ==